=== PATIENT | female | born 1955 | race Caucasian/White ===

== ENCOUNTER 2017-08-09 19:49 | Emergency (ER) | payer OTHER ==
[~2017-08-09] VITALS: Ht 182.9 cm; Wt 70.3 kg
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
--- NOTE | 2017-08-09 21:12 | NUR ---
XRAY AT BEDSIDE.
[2017-08-09] MEDS ORDERED: IBUPROFEN 600 MG TABLET PO ONE ×2 (21:30→21:43)
--- NOTE | 2017-08-09 22:15 | NUR ---
PT SPEAKING WITH FAMILY AT BEDSIDE, RESP EVEN UNLABORED/NAD NOTED.
--- NOTE | 2017-08-09 23:20 | NUR ---
Patient discharged to home in stable condition. Written and verbal after care instructions given. Patient verbalizes understanding of instruction. Pt ambulatory with crutches.
[2017-08-09 23:21] VITALS: BP 128/71
== END 2017-08-09 23:22 | disposition home or self-care (01) ==
LOC: ER 19:50
DX: S82.144A Nondisplaced bicondylar fracture of right tibia, initial encounter for closed fracture (principal); S70.01XA Contusion of right hip, initial encounter; V43.52XA Car driver injured in collision with other type car in traffic accident, initial encounter; Y93.89 Activity, other specified; Y92.89 Other specified places as the place of occurrence of the external cause; Y99.8 Other external cause status
CPT/HCPCS: 29505; 73564; 99284; A4606; Z7610